=== PATIENT | female | born 1970 | race Caucasian/White ===

== ENCOUNTER → 2017-02-05 | Outpatient (CLI) | payer OTHER ==
--- NOTE | 2017-02-05 12:39 | NM ---
EXAMINATION: Nuclear medicine hepatobiliary study (HIDA) with cholecystokinin (calculation of gallbl adder ejection fraction for function). HISTORY: Right upper quadrant pain. PROCEDURE: Following intravenous administration of 3.8 mCi of technetium 99m Choletec, dynamic images were obt ained up to one-hour post injection. This is followed by slow intravenous administration of 1.3 mcg of CCK and additional dynamic images were obtained. Gallbladder ejection fraction is calculated. FINDINGS: The initial dynamic images demonstrates clearance of the tracer from the blood pool with the prompt tracer uptake by the liver. By 15 minutes tracer activity is noted in the gallbladder. The post CCK images demonstrates suboptimal contraction of the gallbladder with ejection fraction of 10 percent ( normal is equal or more than 35%). Tracer activity is noted in the small intestine following CCK adm inistration. IMPRESSION: 1. Patent cystic and common bile ducts. Normal liver function. 2. Abnormal gallbladder ejection fraction following CCK administration (10%; normal equal or more th an 35%). This suggests either biliary dyskinesia or motor dysfunction of the gallbladder.
== END | disposition home or self-care (01) ==
LOC: MW.NM 10:28
PROVIDERS: ATTEND Emergency Medicine
DX: R10.11 Right upper quadrant pain (principal)
CPT/HCPCS: 78227; A9537; J2805

== ENCOUNTER 2018-01-02 23:30 | Emergency (ER) | payer OTHER ==
--- NOTE | 2018-01-03 00:16 | EDM.PDOC ---
ED HPI GENERAL MEDICAL PROBLEM - General Chief Complaint: Lower Extremity Injury/Pain Stated Complaint: left ankle pain Time Seen by Provider: 01/03/18 00:06 - History of Present Illness INITIAL COMMENTS - FREE TEXT/NARRATIVE: HISTORY AND PHYSICAL: History of present illness: The patient is a 47-year-old female who was having a completely normal evening and was getting out of a bathtub and did not stress her left ankle but suddenly felt pain and noticed swelling to the area. SHe did not twist it or stepped funny and does not have any distal foot pain toe pain or proximal leg pain and knee pain or hip pain. She has no swelling to her calf and no calf tenderness but has noticed soft tissue swelling at the lateral aspect of her ankle posteriorly. She has no neurosensory changes and she just has pain with weightbearing. She is not taking anything for pain nor did she want anything for pain Review of systems: As per history of present illness and below otherwise all systems reviewed and negative. Past medical history: As per history of present illness and as reviewed below otherwise noncontributory. Surgical history: As per history of present illness and as reviewed below otherwise noncontributory. Social history: No reported history of drug or alcohol abuse. Family history: As per history of present illness and as reviewed below otherwise noncontributory. Physical exam: : Well-developed well-nourished female who is nontoxic and vital signs were noted by me HEENT: Atraumatic, normocephalic, negative for conjunctival pallor or scleral icterus, mucous membranes moist, throat clear, neck supple, nontender, trachea midline. Lungs: Clear to auscultation, breath sounds equal bilaterally, chest nontender. Heart: S1S2, regular rate and rhythm no overt murmurs Abdomen: Deferred Pelvis: Stable nontender. No lateral hip tenderness on the left Genitourinary: Deferred. Rectal: Deferred. Extremities: Atraumatic and no palpable bony deformities are appreciated at the left leg ankle or foot but there is visible soft tissue swelling just posterior to the medial malleolus not including the Achilles tendon. This soft tissue swelling extends downward and slightly over the lateral malleolus but is not ecchymotic. There is no tenderness of the talus or the calcaneus but there is some tenderness at the lateral malleolus. The tendon of the Achilles is intact on palpation and the patient is able to dorsi and plantar flex and there is slightly diminished movement of the foot with calf compression. The legs are negative for cords or calf pain. Neurovascular unremarkable. There is no calf swelling on the left or ecchymosis and no leg asymmetry. Neuro: Awake, alert, oriented. Cranial nerves II through XII unremarkable. Cerebellum unremarkable. Motor and sensory unremarkable throughout. Exam nonfocal. Diagnostics: X-ray left ankle Therapeutics: The patient refused pain medications Ortho boot and crutches Impression: Left ankle injury/ tendon injury Definitive disposition and diagnosis as appropriate pending reevaluation and review of above. left ankle Pain Score (Numeric/FACES): 5 - Related Data Allergies Allergy/AdvReac Type Severity Reaction Status Date / Time Penicillins Allergy Hives Verified 01/02/18 23:52 Home Meds: Home Meds . [No Known Home Meds] 01/02/18 [History] Past Medical History - Past Health History Medical/Surgical History: Denies Medical/Surgical History Social & Family History - Tobacco Use Smoking Status *Q: Never Smoker Second Hand Smoke Exposure: No - Alcohol Use Days Per Week of Alcohol Use: 0 - Recreational Drug Use Recreational Drug Use: No Review of Systems - Review of Systems Review Of Systems: ROS reveals no pertinent complaints other than HPI. ED EXAM, GENERAL - Physical Exam Exam: See Below (See dictation) Course - Vital Signs Last Recorded V/S: Last Vital Signs Temp 36.8 C 01/02/18 23:43 Pulse Resp 18 01/02/18 23:43 BP 152/85 H 01/02/18 23:43 Pulse Ox 97 01/02/18 23:43 - Orders/Labs/Meds Orders: Active Orders 24 hr Category Date Time Status Ankle Min 3V Lt [CR] Stat Exams 01/03/18 00:11 Taken DME for Discharge [COMM] Stat Oth 01/03/18 01:18 Ordered Departure - Departure Time of Disposition: 01:21 Disposition: Home, Self-Care 01 Condition: Good Clinical Impression: Injury of tendon of ankle Left ankle injury Qualifiers: Encounter type: initial encounter Qualified Code(s): S99.912A - Unspecified injury of left ankle, initial encounter - Discharge Information Referrals: Dylan Verma MD [Primary Care Provider] - Forms: ED Department Discharge Additional Instructions: The following information is given to patients seen in the emergency department who are being discharged to home. This information is to outline your options for follow-up care. We provide all patients seen in our emergency department with a follow-up referral. The need for follow-up, as well as the timing and circumstances, are variable depending upon the specifics of your emergency department visit. If you don't have a primary care physician on staff, we will provide you with a referral. We always advise you to contact your personal physician following an emergency department visit to inform them of the circumstance of the visit and for follow-up with them and/or the need for any referrals to a consulting specialist. The emergency department will also refer you to a specialist when appropriate. This referral assures that you have the opportunity for followup care with a specialist. All of these measure are taken in an effort to provide you with optimal care, which includes your followup. Under all circumstances we always encourage you to contact your private physician who remains a resource for coordinating your care. When calling for followup care, please make the office aware that this follow-up is from your recent emergency room visit. If for any reason you are refused follow-up, please contact the [facility] emergency department at and ask to speak to the emergency department charge nurse. [facility]--Orthopedic clinic Professional [address] [address] Ice and elevate the area and wear ortho boot at all times only removing at sleep times or loosening the Velcro straps at sleep times. Use crutches and do not weight-bear until you are followed up in the clinic. Please call our orthopedics clinic on Friday to schedule a follow-up appointment. Use over-the- counter Tylenol or ibuprofen as you choose for pain. Return to ER as needed and as discussed - My Orders Last 24 Hours: My Active Orders 01/03/18 00:11 Ankle Min 3V Lt [CR] Stat 01/03/18 01:18 DME for Discharge [COMM] Stat - Assessment/Plan Last 24 Hours: My Active Orders 01/03/18 00:11 Ankle Min 3V Lt [CR] Stat 01/03/18 01:18 DME for Discharge [COMM] Stat
[2018-01-03 01:41] VITALS: BP 137/78
--- NOTE | 2018-01-05 10:29 | CR ---
EXAM DATE: 01/02/18 PATIENT'S AGE: 47 Patient: CORINE BRADFORD Facility: [place], [place] Site . Site : [id number] Study: XRay Extremity Left [id number]/10/2018 12:54:10 AM Ordering Physician: José Zepeda Final Report: INDICATION: NON INJURY LT ANKLE SWELLING TECHNIQUE: Three views of the left ankle COMPARISON: None FINDINGS: Bones: Enthesophyte formation along the Achilles tendon insertion calcaneus. No fractures or bone lesions. Joint spaces: Unremarkable. Soft tissues: Unremarkable. IMPRESSION: No acute bony abnormality Dictated by Trenton Kate MD @ 01/03/2018 1:12:52 AM Dictated by: Trenton Kate MD @ 01/03/2018 01:13:00 (Electronic Signature) Report Signed by Proxy. [facility]
== END 2018-01-03 01:35 | disposition home or self-care (01) ==
LOC: MW.ED 23:30
DX: S96.902A Unspecified injury of unspecified muscle and tendon at ankle and foot level, left foot, initial encounter (principal); Z88.0 Allergy status to penicillin; X58.XXXA Exposure to other specified factors, initial encounter
CPT/HCPCS: 73610-26-LT; 73610-LT; 99283